=== PATIENT | female | born 1940 | race Caucasian/White ===

== ENCOUNTER 2023-05-22 16:20 | Outpatient (REF) | payer MEDICARE, SELFPAY ==
[2023-05-22 16:40] LABS: Anion Gap 3.6 mmol/L (3-11); BUN 15 mg/dL (7-18); CO2 30.4 mmol/L (21.0-32.0); CREATININE 0.7 mg/dL (0.55-1.02); Calcium 8.7 mg/dL (8.5-10.1); Chloride 100 mmol/L (98-107); Estimated GFR 86.83 (mL/min/1.73m2); Glucose 156 mg/dL (74-106); Magnesium 1.8 mg/dL (1.8-2.4); PHOSPHORUS 3.9 mg/dL (2.6-4.7); Potassium 3.9 mmol/L (3.5-5.1); Sodium 134 mmol/L (136-145)
== END 2023-05-22 16:21 | disposition home or self-care (01) ==
LOC: LBN 16:20
PROVIDERS: PCP Internal Medicine; Visit Provider Internal Medicine
DX: M81.0 Age-related osteoporosis without current pathological fracture (principal)
CPT/HCPCS: 80048; 83735; 84100

== ENCOUNTER 2023-06-18 15:19 | Outpatient (REF) | payer MEDICARE, SELFPAY ==
[2023-06-18 16:14] LABS: Anion Gap 4.8 mmol/L (3-11); BUN 19 mg/dL (7-18); CO2 31.2 mmol/L (21.0-32.0); CREATININE 0.9 mg/dL (0.55-1.02); Calcium 8.9 mg/dL (8.5-10.1); Chloride 100 mmol/L (98-107); Estimated GFR 64.23 (mL/min/1.73m2); Glucose 113 mg/dL (74-106); Magnesium 1.9 mg/dL (1.8-2.4); Potassium 4.2 mmol/L (3.5-5.1); Sodium 136 mmol/L (136-145)
== END 2023-06-18 15:20 | disposition home or self-care (01) ==
LOC: LBN 15:19
PROVIDERS: PCP Internal Medicine; Visit Provider Internal Medicine
DX: M81.0 Age-related osteoporosis without current pathological fracture (principal)
CPT/HCPCS: 80048; 83735; 84100

== ENCOUNTER 2023-06-22 04:12 | Outpatient (RCR) | payer MEDICARE, SELFPAY ==
[2023-06-22] MEDS: ZOLEDRONIC ACID/MANNITOL/WATER 5 MG/100 ML BTL 300 MG IVPB (10:15)
[2023-06-22] MEDS: Normal Saline Flush 10 ML SYR IVP (10:19)
== END 2023-07-10 23:59 | disposition home or self-care (01) ==
LOC: INF 04:12
PROVIDERS: PCP Internal Medicine; Visit Provider Nurse Practitioner Acute Care
DX: M81.0 Age-related osteoporosis without current pathological fracture (principal)
CPT/HCPCS: 96365; J3489

== ENCOUNTER 2023-07-26 12:09 | Outpatient (REF) | payer MEDICARE, SELFPAY ==
[2023-07-26 12:59] LABS: Anion Gap 5.8 mmol/L (3-11); BUN 16 mg/dL (7-18); CO2 29.2 mmol/L (21.0-32.0); CREATININE 0.8 mg/dL (0.55-1.02); Calcium 8.5 mg/dL (8.5-10.1); Chloride 102 mmol/L (98-107); Estimated GFR 73.98 (mL/min/1.73m2); Glucose 87 mg/dL (74-106); Magnesium 1.8 mg/dL (1.8-2.4); Potassium 4.4 mmol/L (3.5-5.1); Sodium 137 mmol/L (136-145); Vitamin B12 1000 pg/mL (193-986)
== END 2023-07-26 12:10 | disposition home or self-care (01) ==
LOC: NCHCN 12:09
PROVIDERS: PCP Internal Medicine; Visit Provider Nurse Practitioner Family
DX: Z51.81 Encounter for therapeutic drug level monitoring (principal)
CPT/HCPCS: 80048; 82607; 83735

== ENCOUNTER 2023-10-30 07:06 | Outpatient (REF) | payer MEDICARE, SELFPAY ==
[2023-10-30 09:41] LABS: C Diff PCR Negative (Negative)
[2023-10-31 22:41] LABS: Campylobacter PCR Negative (Negative); Salmonella PCR Negative (Negative); Shiga Toxin PCR Negative (Negative); Shigella/Enteroinvasive Ecoli Negative (Negative)
== END 2023-10-30 07:07 | disposition home or self-care (01) ==
LOC: NCHCN 07:06
PROVIDERS: PCP Internal Medicine; Visit Provider Nurse Practitioner Family
DX: R19.7 Diarrhea, unspecified (principal)
CPT/HCPCS: 87493; 87505; 87177

== ENCOUNTER 2023-10-31 14:55 | Outpatient (REF) | payer MEDICARE, SELFPAY ==
[2023-10-31 10:22] LABS: Abs Immature Grans 0.03 10^3/uL (0.0-0.06); Absolute Basophil Count 0.05 10^3/uL (0.0-0.2); Absolute Eosinophil Count 0.35 10^3/uL (0.0-0.7); Absolute Lymphocyte Count 0.97 10^3/uL (1.2-3.4); Absolute Monocyte Count 0.64 10^3/uL (0.1-0.8); Absolute Neutrophil Count 4.94 10^3/uL (1.2-6.7); Basophils % 0.7; HCT 38.8 % (36.0-46.0); HGB 13.1 g/dL (11.2-15.7); Immature Grans % 0.4; Lymphocytes % 13.9; MCH 31.3 pg (27.0-33.0); MCHC 33.8 % (32.0-36.0); MCV 93 fL (80-95); MPV 9.6 fL (8.0-11.0); Monocytes % 9.2; Neutrophils % 70.8; Platelet Count 223 10^3/uL (130-400); RBC 4.18 10^6/uL (3.93-5.22); RDW 12.4 % (11.7-14.6); RDW-SD 42.6 fL; WBC 6.98 10^3/uL (4.4-10.8)
[2023-10-31 10:51] LABS: ALT 21 U/L (14-59); AST 15 U/L (15-37); Albumin 3.4 g/dL (3.4-5.0); Alkaline Phosphatase 65 U/L (46-116); Anion Gap 10.2 mmol/L (3-11); BUN 14 mg/dL (7-18); Bilirubin, Total 0.5 mg/dL (0.2-1.0); CO2 27.8 mmol/L (21.0-32.0); CREATININE 0.8 mg/dL (0.55-1.02); Calcium 8.3 mg/dL (8.5-10.1); Chloride 102 mmol/L (98-107); Estimated GFR 73.52 (mL/min/1.73m2); Glucose 140 mg/dL (74-106); Lipase 28 U/L (16-77); Potassium 3.7 mmol/L (3.5-5.1); Sodium 140 mmol/L (136-145); Total Protein 6.4 g/dL (6.4-8.2)
== END 2023-10-31 14:56 | disposition home or self-care (01) ==
LOC: NCHCN 14:55
PROVIDERS: PCP Internal Medicine; Visit Provider Nurse Practitioner Family
DX: R19.7 Diarrhea, unspecified (principal)
CPT/HCPCS: 80053; 83690; 85025

== ENCOUNTER 2024-01-16 19:27 | Outpatient (REF) | payer MEDICARE, SELFPAY | END 2024-01-16 19:28 | disposition home or self-care (01) | LOC: LBN 19:27 | PROVIDERS: PCP Nurse Practitioner Family; Visit Provider Nurse Practitioner Adult Health | DX: R19.7 Diarrhea, unspecified (principal) | CPT/HCPCS: 87329 ==

== ENCOUNTER 2024-01-29 12:27 | Outpatient (REF) | payer MEDICARE, SELFPAY ==
[2024-01-29 13:43] LABS: ALT 24 U/L (14-59); AST 20 U/L (15-37); Alkaline Phosphatase 83 U/L (46-116); BUN 12 mg/dL (7-18); Bilirubin, Total 0.67 mg/dL (0.2-1.0); CREATININE 0.8 mg/dL (0.55-1.02); Chloride 100 mmol/L (98-107); Estimated GFR 73.52 (mL/min/1.73m2); Glucose 93 mg/dL (74-106); Potassium 4.2 mmol/L (3.5-5.1); Sodium 139 mmol/L (136-145); Total Protein 7.6 g/dL (6.4-8.2); Vitamin D 25 Total 44.7 ng/mL (30-100)
[2024-01-29 13:46] LABS: Anion Gap 8.8 mmol/L (3-11); CO2 30.2 mmol/L (21.0-32.0)
[2024-01-29 13:58] LABS: PHOSPHORUS 3.8 mg/dL (2.6-4.7)
[2024-01-30 18:09] LABS: Parathyroid Hormone,Intact 50 pg/mL (19-88)
[2024-01-31 08:51] LABS: Calcium (Random Urine) 5.2 mg/dL (See Note)
== END 2024-01-29 12:28 | disposition home or self-care (01) ==
LOC: LBN 12:27
PROVIDERS: PCP Nurse Practitioner Family; Visit Provider Internal Medicine Endocrinology, Diabetes & Metabolism
DX: M81.0 Age-related osteoporosis without current pathological fracture (principal)
CPT/HCPCS: 80053; 82306; 82340; 82565; 83970; 84100

== ENCOUNTER → 2024-02-02 00:11 | Outpatient (CLI) | payer MEDICARE, SELFPAY ==
--- NOTE | 2024-02-02 | DI.DEXA_ITS ---
Exam(s) XR DEXA BONE DENSITY W/WO HOMERO EXAM: XR DEXA BONE DENSITY W/WO HOMERO CLINICAL HISTORY: M81.0 Age related Osteoporosis w/o current pathological FX TECHNIQUE: Routine DEXA evaluation of the lumbar spine, hip, or forearm. COMPARISON: No exams were available for comparison FINDINGS: Performed on a Hologic unit. Lateral image: Not performed Lumbar Spine total T-score: -3.2. This is osteoporosis range Hip total T-score:-3.1. This is osteoporosis range Independent reading at the level of the femoral neck yields T-score of -3.9. This is osteoporosis r siomara Forearm total T-score: -2.0 IMPRESSION: Bone mineral density measures in the osteoporosis range. Fracture risk is high. Note: Any spine fracture indicates 5x risk for subsequent spine fracture and 2x risk for subsequent h ip fracture. World Health Organization criteria for BMD interpretation classify patients: Normal...... T- Score at or above -1.0 Osteopenic... T- Score between -1.0 and -2.5 Osteoporosis... T-Score at or below -2.5
== END ==
PROVIDERS: PCP Nurse Practitioner Family; Visit Provider Internal Medicine Endocrinology, Diabetes & Metabolism
DX: M81.0 Age-related osteoporosis without current pathological fracture (principal)
CPT/HCPCS: 77080

== ENCOUNTER → 2024-04-12 15:15 | Outpatient (BNVA) | payer MEDICARE, SELFPAY | PROVIDERS: PCP Nurse Practitioner Family; Referring Provider Nurse Practitioner Family; Visit Provider Physical Therapy Assistant | DX: R19.7 Diarrhea, unspecified (principal); Z85.038 Personal history of other malignant neoplasm of large intestine | CPT/HCPCS: 99203 ==

== ENCOUNTER 2024-06-20 14:55 | Outpatient (CLI) | payer MEDICARE, SELFPAY ==
--- NOTE | 2024-06-20 14:15 | DI.RAD_ITS ---
Exam(s) XR SHOULDER LT COMPLETE 2+V EXAM: XR SHOULDER LT COMPLETE 2+V CLINICAL HISTORY: LEFT SHOULDER PAIN. TECHNIQUE: 2D digital imaging was performed. Two views. COMPARISON: No exams were available for comparison FINDINGS: BONES: No acute fracture is present. No bony destructive lesion is seen. JOINTS: No dislocation present. Mild to moderate narrowing of the glenohumeral joint. Mild spurring at the glenoid. No significant spurring at the AC joint. SOFT TISSUE: Normal. IMPRESSION: [id number] degenerative changes of the glenohumeral joint. DATA REPOSITORY: RADIATION DOSE DELIVERED:
== END 2024-06-20 14:56 | disposition home or self-care (01) ==
LOC: DIORS 14:55
PROVIDERS: PCP Nurse Practitioner Family; Referring Provider Nurse Practitioner Family; Visit Provider Student in an Organized Health Care Education/Training Program
DX: M19.012 Primary osteoarthritis, left shoulder
CPT/HCPCS: 20610; 99203; J1010; 73030

== ENCOUNTER 2024-07-24 18:03 | Outpatient (REF) | payer MEDICARE, SELFPAY ==
[2024-07-24 17:33] LABS: ALT 16 U/L (14-59); AST 14 U/L (15-37); Alkaline Phosphatase 83 U/L (46-116); Anion Gap 9.1 mmol/L (3-11); BUN 21 mg/dL (7-18); Bilirubin, Total 0.46 mg/dL (0.2-1.0); CO2 27.9 mmol/L (21.0-32.0); Calcium 9.1 mg/dL (8.5-10.1); Calculated LDL 79 mg/dL (<100); Chloride 102 mmol/L (98-107); Cholesterol 186 mg/dL (<200); Estimated GFR 56.25 (mL/min/1.73m2); Glucose 136 mg/dL (74-106); HDL Cholesterol 74 mg/dL (40-60); Magnesium 1.7 mg/dL (1.8-2.4); Potassium 4.2 mmol/L (3.5-5.1); Sodium 139 mmol/L (136-145); Total Protein 7.3 g/dL (6.4-8.2); Triglyceride 169 mg/dL (<150); Vitamin B12 548 pg/mL (193-986); Vitamin D 25 Total 40.5 ng/mL (30-100)
== END 2024-07-24 18:04 | disposition home or self-care (01) ==
LOC: NCHCN 18:03
PROVIDERS: PCP Nurse Practitioner Family; Visit Provider Nurse Practitioner Family
DX: I25.10 Atherosclerotic heart disease of native coronary artery without angina pectoris (principal); M81.0 Age-related osteoporosis without current pathological fracture
CPT/HCPCS: 80053; 80061; 82306; 82607; 83735

== ENCOUNTER 2025-04-22 12:27 | Outpatient (REF) | payer MEDICARE, SELFPAY ==
[2025-04-22 14:56] LABS: Abs Immature Grans 0.01 10^3/uL (0.0-0.06); HCT 43.0 % (36.0-46.0); HGB 14.7 g/dL (11.2-15.7); Immature Grans % 0.2 %; MCH 32.2 pg (27.0-33.0); MCHC 34.2 % (32.0-36.0); MCV 94 fL (80-95); MPV 9.7 fL (8.0-11.0); Platelet Count 259 10^3/uL (130-400); RBC 4.57 10^6/uL (3.93-5.22); RDW 12.0 % (11.7-14.6); RDW-SD 41.8 fL; WBC 6.45 10^3/uL (4.4-10.8)
[2025-04-22 15:07] LABS: Iron 88 ug/dL (50-170); Total Iron Binding Capacity 270 ug/dL (250-450); Transferrin Sat 33 % (15-50)
[2025-04-22 17:31] LABS: ALT 26 U/L (14-59); AST 22 U/L (15-37); Albumin 4.1 g/dL (3.4-5.0); Alkaline Phosphatase 92 U/L (46-116); Anion Gap 10.2 mmol/L (3-11); BUN 20 mg/dL (7-18); Bilirubin, Total 0.5 mg/dL (0.2-1.0); CO2 30.8 mmol/L (21.0-32.0); Calcium 9.0 mg/dL (8.5-10.1); Chloride 99 mmol/L (98-107); Estimated GFR 73.06 (mL/min/1.73m2); Ferritin 97 ng/mL (8-252); Glucose 85 mg/dL (74-106); Magnesium 1.8 mg/dL (1.8-2.4); Potassium 4.6 mmol/L (3.5-5.1); Sodium 140 mmol/L (136-145); Total Protein 7.7 g/dL (6.4-8.2); Vitamin D 25 Total 41 ng/mL (30-100)
== END 2025-04-22 12:28 | disposition home or self-care (01) ==
LOC: NCHCN 12:27
PROVIDERS: PCP Nurse Practitioner Family; Visit Provider Nurse Practitioner Family
DX: M81.0 Age-related osteoporosis without current pathological fracture (principal); I25.10 Atherosclerotic heart disease of native coronary artery without angina pectoris; Z85.038 Personal history of other malignant neoplasm of large intestine
CPT/HCPCS: 80053; 82306; 82728; 83540; 83550; 83735; 85025

== ENCOUNTER 2025-05-21 00:57 | Outpatient (RCR) | payer MEDICARE, SELFPAY ==
[2025-05-21] MEDS: Normal Saline Flush 10 ML SYR IVP (13:37)
== END 2025-06-09 23:59 | disposition home or self-care (01) ==
LOC: INF 00:57
PROVIDERS: PCP Nurse Practitioner Family; Visit Provider Nurse Practitioner Acute Care
DX: M81.0 Age-related osteoporosis without current pathological fracture (principal)
CPT/HCPCS: 96365; J3489

== ENCOUNTER 2025-07-05 09:31 | Emergency (ER) | payer MEDICARE, SELFPAY ==
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
[2025-07-05 09:35] VITALS: BP 127/66; PULSE 90; RESP 20; TEMP 36.6; O2SAT 94
--- NOTE | 2025-07-05 10:00 | DI.RAD_ITS ---
Exam(s) XR LUMBAR SPINE AP, LAT EXAM: XR LUMBAR SPINE AP, LAT CLINICAL HISTORY: Lumbar spine pain. TECHNIQUE: 2D digital imaging was performed. COMPARISON: CR XR DEXA BONE DENSITY W/WO HMOERO from 02/02/2024 FINDINGS: 3 views There is vertebroplasty cement in the T12 and L1 vertebral bodies which exhibit varying degrees of collapse. There is also slight loss of height of superior endplate of L2, age indeterminate. Also slight loss of height of L3 superior endplate, age indeterminate. L4 and L5 vertebral bodies debate normal height. There is mild disc space narrowing. There is no listhesis. No scoliosis. Sacroiliac joints appear unremarkable. Abdominal aorta is heavily calcified. IMPRESSION: Vertebroplasty cement within T12 and L1 vertebral body fractures noted. There is also high-grade wedge fractures of T11 and T10. No previous plain films for comparison. DATA REPOSITORY: RADIATION DOSE DELIVERED:
--- NOTE | 2025-07-05 10:00 | DI.RAD_ITS ---
Exam(s) XR FEMUR RT EXAM: XR FEMUR RT CLINICAL HISTORY: Right hip pain. TECHNIQUE: 2D digital imaging was performed. COMPARISON: No exams were available for comparison FINDINGS: Two views No evidence of right hip nor right femur fracture. No significant right hip joint space narrowing. Bone density is age-appropriate. No osseous lesions. Vascular calcification is noted. IMPRESSION: No acute osseous findings in the right hip and femur DATA REPOSITORY: RADIATION DOSE DELIVERED:
--- NOTE | 2025-07-05 10:00 | DI.RAD_ITS ---
Exam(s) XR PELVIS AP EXAM: XR PELVIS AP CLINICAL HISTORY: Hip pain. TECHNIQUE: 2D digital imaging was performed. COMPARISON: No exams were available for comparison FINDINGS: AP view of pelvis No evidence of pelvic nor hip fracture. No hip joint space narrowing. Bone density normal. No osseous lesions. IMPRESSION: No significant osseous findings in the pelvis and hips. DATA REPOSITORY: RADIATION DOSE DELIVERED:
--- NOTE | 2025-07-05 10:01 | DI.RAD_ITS ---
Exam(s) XR FEMUR LT EXAM: XR FEMUR LT CLINICAL HISTORY: Left hip pain. TECHNIQUE: 2D digital imaging was performed. COMPARISON: CR XR FEMUR RT from 07/05/2025 FINDINGS: Two views No evidence of left femur nor left hip fracture. No hip joint space narrowing. Bone density is age-appropriate. No osseous lesions. Vascular calcification in the femoral arteries noted. IMPRESSION: No acute osseous findings in the left hip. DATA REPOSITORY: RADIATION DOSE DELIVERED:
[2025-07-05 10:50] VITALS: BP 142/78; PULSE 94; RESP 16; O2SAT 94
--- NOTE | 2025-07-05 11:00 | DI.CT_ITS ---
Exam(s) CT THORACIC LUMBAR SPINE WO EXAM: CT THORACIC LUMBAR SPINE WO CLINICAL HISTORY: Low back pain fall. TECHNIQUE: Imaging Protocol: Axial computed tomography images with coronal and sagittal reformatted images were created and reviewed. CONTRAST MATERIAL: Intravenous: None COMPARISON: CT CT PELVIC WO from 07/05/2025 FINDINGS: THORACIC SPINAL COLUMN: There is vertebroplasty cement in T12 and L1, both of which exhibit height loss and there is posterior position of the posterior cortex of T12 by 8 mm, significantly indenting the thecal sac at this level. Above this level there are wedge compression fractures of T10 and T11 and compression fracture of T8 and indentation of the superior endplate of T3. There is no facet joint malalignment. LUMBOSACRAL SPINAL COLUMN: There is osteopenia. Vertebroplasty cement is noted in T12 and L1 vertebral bodies, both which exhibit of height loss. There is also some mild height loss of L2 vertebral body and small indentation of the superior endplate of L3 vertebral body. There is no significant central spinal canal stenosis. Some facet arthropathy. No facet malalignment. IMPRESSION: There are compression fractures of T8, T10 and T11. There is vertebroplasty cement in T12 and L1 vertebral bodies which exhibit height loss. There is vertebroplasty cement evident in T12 and L1 vertebral bodies, both which also exhibit height loss. No sacral fracture identified. Report called by myself to ER physician 07/05/2025 at 21:15 p.m. RADIATION DOSE DELIVERED: 1,481.65mGy.cm Total DLP DATA REPOSITORY: All CT scans at this facility are submitted to the National Radiology Data Registry (NRDR) Dose Index Registry (DIR) with the [employer] ([employer]). RADIATION OPTIMIZATION: All CT scans at this facility use at least one of these dose optimization techniques: automated exposure control; mA and/or kV adjustment per patient size (includes targeted exams where dose is matched to clinical indication); or iterative reconstruction.
--- NOTE | 2025-07-05 11:04 | DI.CT_ITS ---
Exam(s) CT PELVIC WO EXAM: CT PELVIC WO CLINICAL HISTORY: Bilateral proximal hip pain. TECHNIQUE: Imaging Protocol: Axial computed tomography images with coronal and sagittal reformatted images were created and reviewed CONTRAST MATERIAL: Intravenous: none Oral: None COMPARISON: No exams were available for comparison FINDING: PELVIS: OSSEOUS: No pelvic nor hip fractures evident.No significant osseous lesions evident. ANTERIOR ABDOMINAL WALL/GI:No evidence of significant anterior abdominal wall nor inguinal hernia in the pelvis evident.There has been partial sigmoid resection. No abnormality seen at this level no evidence of bowel obstruction, free air, nor abscess in the pelvis. No evidence of appendicitis.No evidence of acute sigmoid diverticulitis.No free fluid in the pelvis. LYMPH NODES: There is no intrapelvic nor inguinal adenopathy. URINARY BLADDER: Urinary bladder is distended. REPRODUCTIVE: Uterus and adnexal regions appear age-appropriate.. IMPRESSION: 1. No fractures evident. 2. Evidence of prior partial sigmoid resection. RADIATION DOSE DELIVERED: 1,481.65mGy.cm Total DLP DATA REPOSITORY: All CT scans at this facility are submitted to the National Radiology Data Registry (NRDR) Dose Index Registry (DIR) with the [employer] (ACR). RADIATION OPTIMIZATION: All CT scans at this facility use at least one of these dose optimization techniques: automated exposure control; mA and/or kV adjustment per patient size (includes targeted exams where dose is matched to clinical indication); or iterative reconstruction.
[2025-07-05 11:45] VITALS: BP 147/67; PULSE 84; RESP 18; O2SAT 96
[2025-07-05 13:02] VITALS: BP 137/78; PULSE 81; O2SAT 94
--- NOTE | 2025-07-05 13:40 | NUR.NOTE ---
Nursing Note: Ambulatory order from physician to determine if PT necessary. Pt given a two-wheeled walker for the test. Pt states, I usually use a 4 wheel walker. I can't pick these up very well. Pt ambulated from bed into ED, turning around and returning to bed. Total walk ~50 feet. Pt had some difficulty lifting walker rear legs but was able to ambulate w/o difficulty. Caregiver states pt ambulating like she usually does.
[2025-07-05 14:03] VITALS: BP 157/84; PULSE 88; RESP 18; O2SAT 96
== END 2025-07-05 14:03 | disposition home or self-care (01) ==
PROVIDERS: Emergency Provider Emergency Medicine; PCP Nurse Practitioner Family
DX: M54.50 Low back pain, unspecified (principal); W19.XXXA Unspecified fall, initial encounter
CPT/HCPCS: 99283; 99284; 73552; 72100; 72128; 72131; 72170; 72192

== ENCOUNTER 2025-07-07 08:45 | Observation (INO) | payer MEDICARE, SELFPAY ==
[2025-07-07] VITALS (61 sets, daily range): BP systolic 129–165; BP diastolic 62–74; PULSE 87–110; RESP 16–18; TEMP 36.7–37.4; O2SAT 91–95
--- NOTE | 2025-07-07 08:47 | W.ED.GENAD ---
Discharge Plan Discharge Details Chief Complaint: Fall/Non TraumaCriteria Admit Date/Time: 07/07/25 12:58 Admit Provider: Bebeto Del Valle Attending Provider: Bebeto Del Valle Primary Care Provider: Paige Davalos ED Provider: Sg Philip Discharge Data Discharge Date/Time-TO BE ENTERED AT DEPARTURE: 07/07/25 12:45 HPI General Date/Time Provider Initiated Documentation: 07/07/25 08:46. HPI Narrative: MDM This is an overall well-appearing initially tachycardic but normotensive and normothermic 84-year-old female with worsening pain following fall several days ago with reassuring imaging for which patient received PT evaluation and was graciously accepted for hospitalization by Dr. Del Valle. She did complain of bilateral lower extremity pain which was new so I obtained plain films. No pain out of proportion to suggest necrotizing soft tissue infection. Patient would likely benefit from inpatient MRI given concern for pelvic insufficiency fracture. No chest trauma no shortness of breath so doubt pneumothorax I did not chest x-ray. No loss of bowel or bladder control to suggest cauda equina syndrome. No preceding chest pain to suggest ACS. No shortness of breath to suggest PE. Patient is not septic so did not order blood cultures normal lactate. Will treat pain with acetaminophen. 11 AM CBC lacks anemia thrombocytopenia and leukocytosis. Basic metabolic panel with no MARIAA. Mild hyperglycemia but no anion gap. CK not consistent with rhabdomyolysis. HPI The patient presents for evaluation of bilateral hip pain. She is accompanied by her daughter. She reports experiencing pain in both hips, which radiates down her legs, making it difficult for her to stand. She does not experience any mid-back pain. She has not had any recent falls or loss of bowel or bladder control. She also reports no numbness or tingling in her feet, fevers, cough, or difficulty breathing. She had an external catheter placed on Tuesday and notes a decrease in urine output since then. Exam General: Well-appearing in no acute distress speaking in complete sentences. Head: Normocephalic, atraumatic. Eye: Extraocular eye movements intact. No conjunctival injection. No scleral icterus. Ear, nose, mouth, throat: Grossly normal inspection. Normal voice, handling secretions normally. Neck: Trachea midline. No cervical spinal tenderness. Cardiovascular: Well-perfused distal extremities. Respiratory: Nonlabored respiration. Clear lungs bilaterally. Gastrointestinal: Nondistended abdomen. Soft nontender. Musculoskeletal: Bilateral proximal hips with tenderness. No midline thoracic nor lumbar spinal tenderness. Patient has left proximal tibial tenderness and right distal tibial tenderness. No obvious deformities nor ecchymoses. Intact DP and PT pulses bilaterally. Bilateral upper extremities nontender. Skin: Normal for age and race, grossly normal temperature and turgor. No acute rash. Neurologic: Alert and appropriate, no apparent acute deficits. GCS 15. Psychiatric: Mood and manner are appropriate. Grooming and personal hygiene are appropriate. Related Data Home Medications ?Medication ?Instructions ?Recorded ?Confirmed amlodipine 10 mg tablet 10 mg PO DAILY 05/31/23 07/07/25 calcium 500 mg (as 1 tab PO BID 05/31/23 07/07/25 carbonate)-vitamin D3 10 mcg (400 unit) tablet carvedilol 12.5 mg tablet 12.5 mg PO BID 05/31/23 07/07/25 clonidine HCl 0.1 mg tablet 0.1 mg PO BID 05/31/23 07/07/25 fluticasone furoate 100 1 inh inhalation DAILY 05/31/23 07/07/25 mcg-vilanterol 25 mcg/dose inhalation powder furosemide 20 mg tablet 20 mg PO DAILY 05/31/23 07/07/25 losartan 100 mg tablet 100 mg PO DAILY 05/31/23 07/07/25 multivitamin with iron 1 tab PO DAILY 05/31/23 07/07/25 omeprazole 40 mg capsule,delayed 40 mg PO DAILY 05/31/23 07/07/25 release simvastatin 40 mg tablet 40 mg PO QHS 05/31/23 07/07/25 trazodone 50 mg tablet 150 mg PO QHS PRN 05/31/23 07/07/25 docusate sodium 100 mg capsule 200 mg PO BID 06/01/23 07/07/25 polyethylene glycol 3350 17 17 g PO DAILY 07/13/23 07/07/25 gram/dose oral powder loperamide 2 mg tablet (Imodium 2 mg PO BID PRN 01/11/24 07/07/25 A-D) apixaban 2.5 mg tablet (Eliquis) 2.5 mg PO BID 06/06/24 07/07/25 melatonin 5 mg capsule 5 mg PO HS 07/05/25 07/07/25 methocarbamol 500 mg tablet 500 mg PO TID #7 tabs 07/05/25 07/07/25 Previous Rx's ?Medication ?Instructions ?Recorded methocarbamol 500 mg tablet 500 mg PO TID #7 tabs 07/05/25 Allergies Allergy/AdvReac Type Severity Reaction Status Date / Time No Known Allergies Allergy Verified 07/07/25 09:07 General YANET: 3 PFSH All Active Problems (Updated 07/07/25 @ 14:41 by Lori Damian NP) Discharge planning issues (Acute) Acute low back pain (Acute) Hx of falling (Acute) Arthritis of left glenohumeral joint (Acute) Impaired cognition (Chronic) Asthma (Chronic) Atrial fibrillation, chronic (Acute) Microscopic colitis (Acute) 06/06/24 per PCPn problem list [facility] Lives in assisted living facility (Acute) Back pain (Acute) Plantar fasciitis (Acute) Physician orders for life-sustaining treatment (POLST) form indicates patient wish for fj-rvd-fvfzwfmjqnr status (Acute) ACP (advance care planning) (Acute) Medical History White blood cell disorder Paroxysmal atrial fibrillation Non-toxic multinodular goiter Nocturia Migraine with aura Microscopic hematuria Insomnia Hypertensive disease Hyperlipidemia Hx of malignant neoplasm of colon Cough variant asthma Constipation Compression fracture of lumbar vertebra Chronic pain Cerebrovascular accident Cataract Osteoporosis Surgical History History of bowel resection Sigmoid resection for stage 3 colon cancer 07/10/1997 Hx of colonoscopy Social History Smoking/Tobacco Use Status: Former Tobacco Use Smoking risk assessment performed?: Yes Alcohol Intake: never Drug use: Never Substance use type: does not use Housing: assisted living facility Additional Social history: [facility]
[2025-07-07 09:47] LABS: Abs Immature Grans 0.05 10^3/uL (0.0-0.06); HCT 40.2 % (36.0-46.0); HGB 14.0 g/dL (11.2-15.7); Immature Grans % 0.5 %; MCH 31.7 pg (27.0-33.0); MCHC 34.8 % (32.0-36.0); MCV 91 fL (80-95); MPV 9.2 fL (8.0-11.0); Platelet Count 183 10^3/uL (130-400); RBC 4.41 10^6/uL (3.93-5.22); RDW 11.9 % (11.7-14.6); RDW-SD 39.8 fL; WBC 10.07 10^3/uL (4.4-10.8)
--- NOTE | 2025-07-07 09:53 | IN_ITS ---
Date of service: 07/07/25 Time of Service: 10:00 PT Emergency Department Note Patient Location: Emergency Room Referring Provider: Sg Philip PT Diagnosis: Fall/difficulty walking Diagnosis: Fall/difficulty walking Date of Service: July 07, 2025 10:00 Physical Therapy Evaluation Date: 07/07/25 Referring Doctor: Sg Philip PT Orders: PT CONSULT: Difficulty ambulating Precautions: Fall precautions Patient Profile/Admitting Diagnosis: Pt reports that she fell on 07/05/25. She was seen in the ED, had CT scans (thoracic, lumbar and pelvis) and x-rays (lumbar spine, pelvis and femurs) which were negative. This morning, her pain was much worse. She reports that she has been using a front wheeled rolling walker for about three years. She lives at the [facility]. PMHX: See below Social History/Home Situation: Lives at the [facility] Current Functional Limitations: Unable to ambulate due to pain Equipment Owned/DME: Front wheeled rolling walker Subjective: Pt reports that she is in a lot of pain this morning. Pain is worse with movement especially trying to sit up or stand up. With attempt to sit up, pt reported that her pain increased to a 10/10. Objective: General Observation: Mental Status: Alterd and oriented Pain: At rest 7-8/10 in sacral region, 5-6/10 in left > right LE, increased to 10/10 with active movement Vital Signs: Monitored by nursing ROM: Right Lower Extremity: PROM WFL Left Lower Extremity: PROM WFL Strength: Right Lower Extremity: grossly 3-3+/5 Left Lower Extremity: grossly 3-3+/5 Bed Mobility/Transfers: Max assist to attempt supine to sit transfer, pain increased to a 10/10 Gait: Unable at this time secondary to pain Balance: Unable to assess at this time secondary to pain Special Tests: Mobility Limitations Standardized Measure [facility] AM-PAC 6 clicks Basic Mobility Inpatient Short Form: Raw Score: 7 Standardized Score: 26.42 CMS Score: 92.36 Informed Consent/Education: Patient instructed in purpose of PT consult and plan of care. Assessment: Patient is a 84 year old female referred to physical therapy services difficulty ambulating following fall on 07/05/25. Patient presents with the following impairment level findings: decreased strength, impaired mobility and difficulty walking. Impairments are contributing to the following functional limitations: AMPAC score. Patient is assessed as a [] Low 90160 [x] Moderate 80011 [] High 12357 complexity based on the following: History: See above Examination: See above Presentation: Evolving Decision Making: Moderate Goals: Goals X1 week 1. Supine-Sit CG of1 to supervision 2. Sit-Supine CG of1 to supervision 3. Sit-Stand CG of1 to supervision 4. Stand-Sit CG of1 to supervision 5. Bed-Chair CG of1 to supervision 6. Chair-Bed CG of1 to supervision 7. Gait CG of1 to supervision with FFW 8. Stairs n/a 9. Independent with home exercise program 10. Balance: able to maintain static and dynamic standing with supervision to CG of and use of FWW Plan of Care/Treatment Plan: 1-2x/day, 7 days/week x 1 week. Plan of care has been reviewed with the REST ROOM ATTENDANT providing the service under Physical Therapy direction. Initiate Physical Therapy intervention for strengthening, bed mobility, transfers, gait, stairs, balance training, use of assistive device. DISCHARGE RECOMMENDATIONS: Will need additional assessment by PT once pt can better tolerate getting OOB and ambulating but at this point feel that she may require: SNF for continued rehabilitation vs home with HHPT TREATMENT CODE/TIME: 02244 10:00-10:25 [facility] All Active Problems (Updated 07/05/25 @ 13:52 by Sg Philip MD) Acute low back pain (Acute) Hx of falling (Acute) Arthritis of left glenohumeral joint (Acute) Impaired cognition (Acute) Asthma (Chronic) Atrial fibrillation, chronic (Acute) Microscopic colitis (Acute) 06/06/24 per PCPn problem list [facility] Lives in assisted living facility (Acute) Back pain (Acute) Plantar fasciitis (Acute) Physician orders for life-sustaining treatment (POLST) form indicates patient wish for vy-hje-diqvqvikmsm status (Acute) ACP (advance care planning) (Acute) Medical History White blood cell disorder Paroxysmal atrial fibrillation Non-toxic multinodular goiter Nocturia Migraine with aura Microscopic hematuria Insomnia Hypertensive disease Hyperlipidemia Hx of malignant neoplasm of colon Cough variant asthma Constipation Compression fracture of lumbar vertebra Chronic pain Cerebrovascular accident Cataract Osteoporosis Surgical History History of bowel resection Sigmoid resection for stage 3 colon cancer 07/10/1997 Hx of colonoscopy
[2025-07-07] MEDS: Losartan 50 MG TAB 100 MG PO (10:02)
[2025-07-07] MEDS: Apixaban 5 MG TAB 2.5 MG PO (10:02)
[2025-07-07] MEDS: amLODIPine 5 MG TAB 10 MG PO (10:03)
[2025-07-07] MEDS: Acetaminophen 500 MG TAB 1000 MG PO (10:03)
[2025-07-07] MEDS: cloNIDine 0.1 MG TAB PO ×2 (10:03→20:19)
[2025-07-07] MEDS: Furosemide 20 MG TAB PO (10:03)
[2025-07-07 10:15] LABS: Anion Gap 8.6 mmol/L (3-11); BUN 17 mg/dL (9-23); CO2 27.4 mmol/L (20.0-31.0); Calcium 8.8 mg/dL (8.3-10.6); Chloride 104 mmol/L (98-107); Creatine Kinase 45 U/L (34-145); Glucose 124 mg/dL (74-106); Potassium 3.6 mmol/L (3.5-5.1); Sodium 140 mmol/L (136-145)
--- NOTE | 2025-07-07 10:15 | DI.RAD_ITS ---
Exam(s) XR TIB/FIB RT EXAM: XR TIB/FIB RT CLINICAL HISTORY: Right tibial pain. TECHNIQUE: 2D digital imaging was performed. COMPARISON: CR,XR XR TIB/FIB LT from 07/07/2025 FINDINGS: Two views No evidence of fracture. Bone density is age-appropriate. No significant osseous lesions. No radiopaque foreign bodies. IMPRESSION: No fractures evident in the tibia and fibula. DATA REPOSITORY: RADIATION DOSE DELIVERED:
--- NOTE | 2025-07-07 10:15 | DI.RAD_ITS ---
Exam(s) XR TIB/FIB LT EXAM: XR TIB/FIB LT CLINICAL HISTORY: Left tibial pain. TECHNIQUE: 2D digital imaging was performed. COMPARISON: CR XR FEMUR LT from 07/05/2025 FINDINGS: Two views No evidence of fracture or dislocation. Bone density normal. No osseous lesions evident. IMPRESSION: No acute osseous findings in the left tibia and fibula. DATA REPOSITORY: RADIATION DOSE DELIVERED:
--- NOTE | 2025-07-07 11:18 | DI.VRAD_ITS ---
PROCEDURE INFORMATION: Exam: XR Left Tibia and Fibula Exam date and time: 07/07/2025 10:39 AM Age: 84 years old Clinical indication: Other: Left tibial pain TECHNIQUE: Imaging protocol: Radiologic exam of the left tibia and fibula. Views: 2 views. COMPARISON: No relevant prior studies available. FINDINGS: Bones/joints: There is no evidence of acute fracture.There is no evidence of malalignment or dislocation. Soft tissues: Normal. IMPRESSION: There is no evidence of acute fracture.There is no evidence of malalignment or dislocation. Dictated and Authenticated by: Dominique Dasilva MD. Orderin Tamera Bettencourt MD
--- NOTE | 2025-07-07 11:19 | DI.VRAD_ITS ---
PROCEDURE INFORMATION: Exam: XR Right Tibia and Fibula Exam date and time: 07/07/2025 10:44 AM Age: 84 years old Clinical indication: Other: Right tibial pain TECHNIQUE: Imaging protocol: Radiologic exam of the right tibia and fibula. Views: 2 views. COMPARISON: No relevant prior studies available. FINDINGS: Bones/joints: There is no evidence of acute fracture.There is no evidence of malalignment or dislocation. . Degenerative changes in the knee and the ankle Soft tissues: Normal. IMPRESSION: There is no evidence of acute fracture.There is no evidence of malalignment or dislocation. Dictated and Authenticated by: Dominique Dasilva MD. Orderin Tamera Bettencourt MD
--- NOTE | 2025-07-07 12:36 | W.PC.ACHO ---
Registration Status: REG ER Primary Language: Preferred Language: ED Information & Data Chief Complaint Fall/Non TraumaCriteria 07/07/25 09:03 Chief Complaint Fall/Non TraumaCriteria 07/07/25 08:56 Triage Note Patient fell 2 days ago when 07/07/25 08:56 visiting her daughter at her home, witnessed fall without LOC. pt reports worsening pain in bilateral hips and lower back/sacrum. difficulty urinating this morning Medical / Surgical History (Updated 07/05/25 @ 13:52 by Sg Philip MD) White blood cell disorder Paroxysmal atrial fibrillation Non-toxic multinodular goiter Nocturia Migraine with aura Microscopic hematuria Insomnia Hypertensive disease Hyperlipidemia Hx of malignant neoplasm of colon Cough variant asthma Constipation Compression fracture of lumbar vertebra Chronic pain Cerebrovascular accident Cataract Osteoporosis (Updated 05/31/23 @ 10:07 by Tami Mccullough RN) History of bowel resection Hx of colonoscopy Most Recent Vital Signs Temperature 37.4 C 07/07/25 08:56 Temperature Source Temporal Artery Scan 07/07/25 08:56 Pulse 92 H 07/07/25 10:00 Respiratory Rate 16 07/07/25 08:56 Blood Pressure 165/74 H 07/07/25 08:56 Blood Pressure Position Supine 07/07/25 08:56 Pulse Oximetry 94 07/07/25 10:00 Oxygen Delivery Method Room Air 07/07/25 08:56 Oxygen Flow Rate 0 07/07/25 08:56 Pain Level 8 07/07/25 09:03 Allergies No Known Allergies Allergy (Verified 07/07/25 09:07) Precautions Isolation Fall precaution 07/07/25 09:03 IV IV Catheter Type [Forearm] Saline Lock IV Catheter Gauge [Forearm] 20 Diet Orders Category Date Time Status Regular/Normal [DIET] Nutrition 07/07/25 Lunch Active Diagnostics 07/07/25 Range/Units 09:35 WBC 10.07 (4.4-10.8) 10^3/uL RBC 4.41 (3.93-5.22) 10^6/uL Hgb 14.0 (11.2-15.7) g/dL Hct 40.2 (36.0-46.0) % MCV 91 (80-95) fL MCH 31.7 (27.0-33.0) pg MCHC 34.8 (32.0-36.0) % RDW 11.9 (11.7-14.6) % Plt Count 183 (130-400) 10^3/uL MPV 9.2 (8.0-11.0) fL Immature Gran % 0.5 % Neutrophils % 78.4 % Lymphocytes % 7.7 % Monocytes % 9.1 % Eosinophils % 3.7 % Basophils % 0.6 % Nucleated RBC % 0.0 (0.0-0.3) % Absolute Neutrophils 7.89 H (1.2-6.7) 10^3/uL Absolute Lymphocytes 0.78 L (1.2-3.4) 10^3/uL Absolute Monocytes 0.92 H (0.1-0.8) 10^3/uL Absolute Eosinophils 0.37 (0.0-0.7) 10^3/uL Absolute Basophils 0.06 (0.0-0.2) 10^3/uL Sodium 140 (136-145) mmol/L Potassium 3.6 (3.5-5.1) mmol/L Chloride 104 (98-107) mmol/L Carbon Dioxide 27.4 (20.0-31.0) mmol/L Anion Gap 8.6 (3-11) mmol/L BUN 17 (9-23) mg/dL Creatinine 0.67 (0.55-1.02) mg/dL Est GFR (CKD-EPI 2020) 83.90 (mL/min/1.73m2) Glucose 124 H (74-106) mg/dL Calcium 8.8 (8.3-10.6) mg/dL Creatine Kinase 45 (34-145) U/L Intake and Output - 24 Hour Total 07/07/25 08:45 thru 07/07/25 09:52 Intake Total 10 Balance 10 Weight 87.3 kg Intake: IV 10 Falls Risk Assessment History of Falls Admit Due to Fall 07/07/25 09:12 Contributing Factors Impairments 07/07/25 09:12 Ambulatory Aids Independent 07/07/25 09:12 Tubes/Lines None 07/07/25 09:12 Gait Evaluation W/no contributing factors 07/07/25 09:12 Cognition No cognitive impairment 07/07/25 09:12 Fall Total Score 38 07/07/25 09:12 Level of Risk High Risk 07/07/25 09:12 Attestation Statement: By documenting the first initial, last name, and credentials of the reporting nurse below, both parties acknowledge that all relevant information regarding the patient handoff has been communicated, and that all questions have been addressed to ensure continuity and safety of care. Additional Patient Information/Comments: All questions answered, VSS, Pt going to room 226. Report Received From: Report received from Jennifer Nixon RN @[phone].
[2025-07-07] MEDS: Carvedilol 12.5 MG TAB PO ×2 (13:28→20:19)
[2025-07-07] MEDS: Methocarbamol 500 MG TAB PO ×2 (13:28→20:19)
--- NOTE | 2025-07-07 14:04 | W.PM.HP.N ---
Date of service: 07/07/25 Time of Service: 13:45 Assessment and Plan Assessment and plan (1) Acute low back pain: Status: Acute Assessment and plan: Bilateral hip pain ? Likely musculoskeletal/pelvic insufficiency fracture; pain control with acetaminophen; Consult ortho 07/08. consider inpatient pelvic MRI. (2) Hx of falling: Status: Acute Assessment and plan: Monitor for complications, no acute spinal or neurologic deficits. (3) Atrial fibrillation, chronic: Status: Acute Assessment and plan: Stable, anticoagulated Medication: Apixaban 2.5 mg PO BID Plan: Continue anticoagulation; monitor for bleeding or thromboembolic events. (4) Impaired cognition: Status: Chronic Assessment and plan: Customary safety interventions Palliative consult Discharge Planning Discharge Planning: Home w v SNF History of Present Illness Narrative: Patient presents with bilateral hip pain following a fall several days ago. Pain radiates down the legs, limiting standing. No mid-back pain, loss of bowel/bladder control, numbness/tingling, fevers, cough, or shortness of breath. Reports decreased urine output after external catheter placement on Tuesday. No prior trauma except the fall several days ago, or recent ACS symptoms. Patient received PT evaluation. Bilateral lower extremity pain is new; plain films obtained?no pain out of proportion; no concern for necrotizing soft tissue infection. MRI considered for possible pelvic insufficiency fracture. Patient is not septic; lactate normal. Pain management in ED acetaminophen - effective . Labs/Diagnostics CBC: No anemia, thrombocytopenia, or leukocytosis BMP: No MARIAA, mild hyperglycemia, no anion gap CK: Normal, not consistent with rhabdomyolysis Imaging: Plain films obtained; MRI for pelvis pending consideration Placed on observation status on the medical floor for further testing and treatment. Review of Systems Narrative: General: No fevers, chills, or malaise Cardiovascular: No chest pain, palpitations Respiratory: No shortness of breath, cough GI/: Decreased urine output, no bowel changes Musculoskeletal: Bilateral hip pain, radiating down legs Neurologic: No numbness, tingling, or deficits Skin: No rashes, lesions Psychiatric: Mood and behavior appropriat [facility] All Active Problems (Updated 07/07/25 @ 14:41 by Lori Damian NP) Discharge planning issues (Acute) Acute low back pain (Acute) Hx of falling (Acute) Arthritis of left glenohumeral joint (Acute) Impaired cognition (Chronic) Asthma (Chronic) Atrial fibrillation, chronic (Acute) Microscopic colitis (Acute) 06/06/24 per PCPn problem list [facility] Lives in assisted living facility (Acute) Back pain (Acute) Plantar fasciitis (Acute) Physician orders for life-sustaining treatment (POLST) form indicates patient wish for hw-mle-bqxgqqzsfao status (Acute) ACP (advance care planning) (Acute) Medical History White blood cell disorder Paroxysmal atrial fibrillation Non-toxic multinodular goiter Nocturia Migraine with aura Microscopic hematuria Insomnia Hypertensive disease Hyperlipidemia Hx of malignant neoplasm of colon Cough variant asthma Constipation Compression fracture of lumbar vertebra Chronic pain Cerebrovascular accident Cataract Osteoporosis Surgical History History of bowel resection Sigmoid resection for stage 3 colon cancer 07/10/1997 Hx of colonoscopy Social History Smoking/Tobacco Use Status: Former Tobacco Use Smoking risk assessment performed?: Yes Alcohol Intake: never Drug use: Never Substance use type: does not use Housing: assisted living facility Additional Social history: [facility] Meds Allergies and Home Medications Allergies Allergy/AdvReac Type Severity Reaction Status Date / Time No Known Allergies Allergy Verified 07/07/25 09:07 Home Medications ?Medication ?Instructions ?Recorded ?Confirmed ?Type amlodipine 10 mg tablet 10 mg PO DAILY 05/31/23 07/07/25 History calcium 500 mg (as 1 tab PO BID 05/31/23 07/07/25 History carbonate)-vitamin D3 10 mcg (400 unit) tablet carvedilol 12.5 mg tablet 12.5 mg PO BID 05/31/23 07/07/25 History clonidine HCl 0.1 mg tablet 0.1 mg PO BID 05/31/23 07/07/25 History fluticasone furoate 100 1 inh inhalation DAILY 05/31/23 07/07/25 History mcg-vilanterol 25 mcg/dose inhalation powder furosemide 20 mg tablet 20 mg PO DAILY 05/31/23 07/07/25 History losartan 100 mg tablet 100 mg PO DAILY 05/31/23 07/07/25 History multivitamin with iron 1 tab PO DAILY 05/31/23 07/07/25 History omeprazole 40 mg capsule,delayed 40 mg PO DAILY 05/31/23 07/07/25 History release simvastatin 40 mg tablet 40 mg PO QHS 05/31/23 07/07/25 History trazodone 50 mg tablet 150 mg PO QHS PRN 05/31/23 07/07/25 History docusate sodium 100 mg capsule 200 mg PO BID 06/01/23 07/07/25 History polyethylene glycol 3350 17 17 g PO DAILY 07/13/23 07/07/25 History gram/dose oral powder loperamide 2 mg tablet (Imodium 2 mg PO BID PRN 01/11/24 07/07/25 History A-D) apixaban 2.5 mg tablet (Eliquis) 2.5 mg PO BID 06/06/24 07/07/25 History melatonin 5 mg capsule 5 mg PO HS 07/05/25 07/07/25 History methocarbamol 500 mg tablet 500 mg PO TID #7 tabs 07/05/25 07/07/25 Rx Exam Narrative Exam Narrative: General: Well-appearing, speaking full sentences, initially tachycardic, normotensive, normothermic Head: Normocephalic, atraumatic Eyes: EOMI, no conjunctival injection or icterus ENT: Normal inspection, normal voice Neck: Trachea midline, no cervical tenderness Cardiovascular: Well-perfused extremities Respiratory: Non-labored, lungs clear Abdomen: Soft, non-tender, non-distended Musculoskeletal: Tenderness at bilateral proximal hips, left proximal tibia, right distal tibia; upper extremities nontender; no deformity; pulses intact Skin: Normal for age, no acute rash Neuro: Alert, GCS 15, no acute deficits Psychiatric: Appropriate mood, grooming, hygiene Results Labs 07/07/25 09:35 07/07/25 09:35 Labs: Laboratory Results - last 24 hr 07/07/25 09:35 WBC 10.07 RBC 4.41 Hgb 14.0 Hct 40.2 MCV 91 MCH 31.7 MCHC 34.8 RDW 11.9 Plt Count 183 MPV 9.2 Immature Gran % 0.5 Neutrophils % 78.4 Lymphocytes % 7.7 Monocytes % 9.1 Eosinophils % 3.7 Basophils % 0.6 Nucleated RBC % 0.0 Absolute Neutrophils 7.89 H Absolute Lymphocytes 0.78 L Absolute Monocytes 0.92 H Absolute Eosinophils 0.37 Absolute Basophils 0.06 Sodium 140 Potassium 3.6 Chloride 104 Carbon Dioxide 27.4 Anion Gap 8.6 BUN 17 Creatinine 0.67 Est GFR (CKD-EPI 2020) 83.90 Glucose 124 H Calcium 8.8 Creatine Kinase 45 Last Vital Signs Temp 36.7 C 07/07/25 12:50 Pulse 88 07/07/25 12:50 Resp 18 07/07/25 12:50 BP 151/74 H 07/07/25 12:50 Pulse Ox 95 07/07/25 12:50 VTE Prohylaxis Risk Level: Low Risk Contraindications: None Prophylaxis: Patient anticoagulated (apixaban) Time Spent Time spent with Patient: 40-54 minutes Time was spent: preparing to see the patient(eg.review tests), obtaining and/or reviewing separately otained hiistory, ordering medications,tests, procedures, referring, communicating with other health multi care technician, indepentently interpreting results, counseling the patient and care coordination
[2025-07-07] MEDS: Acetaminophen 325 MG TAB 650 MG PO ×2 (16:40→20:18)
[2025-07-07] MEDS: Docusate Sodium 100 MG CAP 200 MG PO (20:19)
[2025-07-07] MEDS: Melatonin 3 MG TAB 6 MG PO (20:19)
[2025-07-07] MEDS: Apixaban 2.5 MG TAB PO (20:19)
[2025-07-07] MEDS: Calcium 600mg/Vit D 200U TAB 1 TAB PO (20:19)
[2025-07-07] MEDS: Simvastatin 40 MG TAB PO (20:19)
[2025-07-08] MEDS: Polyethylene Glycol 3350 17 GM PACKET PO ×2 (05:40→09:49)
[2025-07-08 07:45] VITALS: BP 141/67; PULSE 94; RESP 16; TEMP 36.7; O2SAT 94
[2025-07-08] MEDS: Budesonide/Formoterol 80/4.5 6.9 GM 60 PUFF INH IH ×2 (08:18→20:21)
[2025-07-08] MEDS: Carvedilol 12.5 MG TAB PO ×2 (09:44→19:58)
[2025-07-08] MEDS: Omeprazole 20 MG CAPCR 40 MG PO (09:44)
[2025-07-08] MEDS: Calcium 600mg/Vit D 200U TAB 1 TAB PO ×2 (09:44→19:59)
[2025-07-08] MEDS: amLODIPine 10 MG TAB PO (09:44)
[2025-07-08] MEDS: Methocarbamol 500 MG TAB PO ×3 (09:45→19:58)
[2025-07-08] MEDS: cloNIDine 0.1 MG TAB PO ×2 (09:45→19:58)
[2025-07-08] MEDS: Furosemide 20 MG TAB PO (09:45)
[2025-07-08] MEDS: Losartan 50 MG TAB 100 MG PO (09:45)
[2025-07-08] MEDS: Docusate Sodium 100 MG CAP 200 MG PO (09:45)
[2025-07-08] MEDS: Multivitamin TAB 1 TAB PO (09:45)
[2025-07-08] MEDS: Apixaban 2.5 MG TAB PO ×2 (09:46→19:59)
--- NOTE | 2025-07-08 10:26 | PT.INTREAT ---
PT Notes Visit Reasons: bilateral hip pain, ambulatory dysfunction Physical Therapy Inpatient Treatment Note Date: 07/08/25 Precautions: Fall precautions. Standard. Activity as tolerated. Subjective: Complained of pain and soreness in her B thighs and legs. Objective: General Observation: Mental Status: Alterd and oriented Pain: At rest 5/10 in sacral region, 5-6/10 in left > right LE, increased to 10/10 with active movement Vital Signs: Monitored by nursing Bed Mobility/Transfers: Minimal cueing provided for use of B hands as needed for support, movement sequence, AD management, and posture to reduce fall risk and minimize pain report Supine to sit moderate assist Sit to stand moderate assist with FWW Stand to sit minimal assist with FWW Bed to chair minimal assist with FWW Chair to bed minimal assist with FWW Gait: 50 feet with FWW with contact guard assist and FWW. Decreased lillian. Gait antalgic. Balance: Static sitting Fair Dynamic sitting Fair Static standing Fair Dynamic standing Poor Assessment: Patient required use of a front-wheeled walker for today's ambulation task and PT's contact guard assist. Patient was able to tolerate weight bearing through B LE with today's mobility performance with pain medication given by Nurse Sanchez at start of session. Pain limited extent and quality of performance and needed contact guard assist for safety. Session for this morning focused on assistance transfer to and from commode for voiding urine and bowel movement as well as ensuring safety of ambulation task. Plan of Care/Treatment Plan: 1-2x/day, 7 days/week x 1 week. Plan of care has been reviewed with the SALES SERVICE COORDINATOR providing the service under Physical Therapy direction. Initiate Physical Therapy intervention for strengthening, bed mobility, transfers, gait, stairs, balance training, use of assistive device. DISCHARGE RECOMMENDATIONS: Short-term SNF vs HH PT at [facility] based on ability to achieve goals TREATMENT CODE/TIME: 12410 x 48 minutes for 3 units (10:26-11:13).
[2025-07-08] MEDS: Acetaminophen 325 MG TAB 650 MG PO ×2 (10:37→19:03)
[2025-07-08] MEDS: traMADol 50 MG TAB PO ×2 (10:37→19:03)
--- NOTE | 2025-07-08 13:49 | PHA.REVIEW2 ---
Pharmacy Admission Review Admission Clinical Review Admission Pharmacy Review: Acute low back pain (Acute) Hx of falling (Acute) Atrial fibrillation, chronic (Acute) No Known Allergies Allergy (Verified 07/07/25 09:07) Resuscitation Status DNR/DNI Height 4 ft 10 in Weight 87.3 kg Pharmacy Admission Review Renal Dosing Renal Dosing: BUN 17 mg/dL (9-23) 07/07/25 09:35 Creatinine 0.67 mg/dL (0.55-1.02) 07/07/25 09:35 Medications needing adjustments: Reviewed (CrCl 37.96) List of meds needing interventions: Current medications are okay Anticoagulation Anticoagulation: Hgb 14.0 g/dL (11.2-15.7) 07/07/25 09:35 Hct 40.2 % (36.0-46.0) 07/07/25 09:35 Plt Count 183 10^3/uL (130-400) 07/07/25 09:35 Creatinine 0.67 mg/dL (0.55-1.02) 07/07/25 09:35 DVT Prophylaxis: Reviewed Medications: Apixaban (2.5mg BID) Opiate Usage Evaluate Pain Scale/Pains Meds: Reviewed (morphine 2mg IVP q4h PRN - no doses given) Scheduled Bowel Reg ordered if on Opiates?: Yes (Miralax and docusate) Relevant Labs Relevant Labs: Sodium 140 mmol/L (136-145) 07/07/25 09:35 Potassium 3.6 mmol/L (3.5-5.1) 07/07/25 09:35 Chloride 104 mmol/L (98-107) 07/07/25 09:35 Electrolytes, C-Reactive P, ESR: Reviewed (No new labs for today) Cardiac Review BP, HR, EF%: Reviewed (BP 141/67, HR 94) List meds needing interventions: Has orders for amlodipine 10mg daily, carvedilol 12.5mg BID, furosemide 20mg daily and losartan 100mg daily QTc Review QTc: Reviewed (No EKG on file) IV to PO Switch IV Medications: Reviewed (morphine) Home Meds Home Med List reviewed: Reviewed Relevent Home Meds Not ordered & why?: Breo Ellipta (changed to Symbicort per pharmacy protocol) and loperamide (PRN) Current Meds Current Medication Order Review: Intervened Comments: Changed Miralax order from bottle to packets
--- NOTE | 2025-07-08 15:32 | PT.INTREAT ---
PT Notes Visit Reasons: Bilateral Hip Pain; Ambulatory Dysfunction Date: 07/08/2025 PRECAUTIONS: Fall precautions. Standard. Activity as tolerated. SUBJECTIVE: Pt in recliner when approached for therapy this afternoon, agreed to participating with therapy session. OBJECTIVE: ? PAIN: At rest 3/10 in sacral region, 3/10 in left > right LE, increased to 5/10 with active movement VITALS: Monitored by nursing Therapeutic Activities 42901: Direct one-on-one instruction in dynamic activities to improve functional performance. ?? BED MOBILITY/TRANSFERS? Rolling L/R: supervision Supine-sit: ?supervision? Sit-supine: ? supervision? Sit-stand: ?min A? Stand-sit: ??SBA ? Bed-Chair:? ?CGA ? Chair-bed: CGA Provided skilled cues and instruction on performance and technique throughout. Gait Training 30168: Direct one-on-one instruction and skilled instruction in: Employing an assistive device Modified weight-bearing status Movement sequencing Turning and movement with proper form Provided verbal cues for equipment management and technique Provided instruction in gait pattern Patient education regarding pacing and breathing techniques to maximize activity tolerance? GAIT? Assistive Device: ?? FWW? Weight bearing: WBAT Assist: ? CGA? Distance:?? 100'? Deviation: ? antalgic gait, stoop forward posture? ASSESSMENT:?Pt had to go to the commode due to diarrhea, multiple transfer trantraining going from EOB to recliner, institutional nutrition consultant to commode and vice versa with pt tolerating activity well. pt able to stand static and single leg stand during brief donning while standing up, Nurse Fabian informed of pt LBM. PLAN: Continue with balance training, global strengthening and general conditioning for improved safety, mobility and activity tolerance until pt is ready for DC. TREATMENT CODE/TIME: 64751x1 30mins ( 1:45-2:15pm)
--- NOTE | 2025-07-08 16:35 | W.PM.PROGNOT ---
Date of Service Date of service: 07/08/25 Time of Service: 16:35 Assessment and Plan Assessment and plan (1) Acute low back pain: Status: Acute Assessment and plan: Bilateral hip pain ? pain control with acetaminophen, tramadol or severe morphine, today has only needed tylenol, however this afternoon complained of pain with PT that was not controlled, she was given tramadol and pain was considerably less. Consult ortho 07/08. Continue working with PT. (2) Hx of falling: Status: Acute Assessment and plan: Monitor for complications, no acute spinal or neurologic deficits. (3) Atrial fibrillation, chronic: Status: Acute Assessment and plan: Stable, anticoagulated Medication: Apixaban 2.5 mg PO BID Plan: Continue anticoagulation; monitor for bleeding or thromboembolic events. (4) Impaired cognition: Status: Chronic Assessment and plan: Customary safety interventions Palliative consult Discharge Planning Discharge Planning: Return to [facility] 07/09 with home health PT Subjective Subjective Patient reports: no new complaints, pain is less, tolerating liquids well, tolerating a regular diet, voiding w/o difficulty and afebrile; denies diarrhea, nausea, vomiting or shortness of breath Interval history since last seen: Awake alert, excited to work with PT and get stronger to return to the [facility]. Exam Narrative Exam Narrative: General: Well-appearing, speaking full sentences, VSS Head: Normocephalic, atraumatic Eyes: EOMI, no conjunctival injection or icterus ENT: Normal inspection, normal voice Neck: Trachea midline, no cervical tenderness Cardiovascular: Well-perfused extremities Respiratory: Non-labored, lungs clear Abdomen: Soft, non-tender, non-distended Musculoskeletal: Tenderness at bilateral proximal hips, upper extremities nontender; no deformity; pulses intact, no edema noted, skin w/d/p Skin: Normal for age, no acute rash Neuro: Alert, GCS 15, no acute deficits Psychiatric: Appropriate mood, grooming, hygiene Objective Last Vital Signs Temp 36.7 C 07/08/25 07:45 Pulse 94 H 07/08/25 07:45 Resp 16 07/08/25 07:45 BP 141/67 H 07/08/25 07:45 Pulse Ox 94 07/08/25 07:45 VTE Prohylaxis Risk Level: Low Risk Contraindications: None Prophylaxis: Patient anticoagulated (apixaban) Time Spent with Patient Time Spent with Patient: 25-34 minutes Time was spent: preparing to see the patient(eg.review tests), referring, communicating with other health medication care manager, indepentently interpreting results, counseling the patient and care coordination
--- NOTE | 2025-07-08 18:24 | PDOC.CMIN ---
Date of service: 07/08/25 Time of Service: 18:24 Care Management Initial Assmt Initial Assessment Reason for Hospitalization: bilateral hip pain, ambulatory dysfunction Functional Status/Living Situation Patient Presentation: Nellie was sitting up in her chair eating lunch when CM met with her. She stated that although her pain is improved today, she is still feeling pain that she feels is limiting her mobility. CM informed the provider and RN about her complaint of pain. She expressed some concern about not having an MRI today, which she was anticipating; CM informed the provider who will address this with her. Nellie stated that she has lived at [facility] for about 2 years, and lives in a private room on the second floor with access to an elevator. She stated that she has two children, six grandchildren and six great grandchildren. Her daughter lives in [place] and is very supportive. PT stated that she needed moderate assist today to get up and out of bed, but did much better this afternoon, after having pain medication prior to working with PT. CM explained that due to her being in observation status, short term rehab would not be covered by [facility] if needed. She stated that she has funds to pay privately, but also felt that she will likely be able to return to [facility], if she continues to feel better. CM will continue to follow. Town of Residence: [facility] Resides with: Other ([facility]) Significant Other/Family: Local Natural Supports: daughterAyleen Employment Status: Retired Instrumental Activities of Daily Living (ADLs): Requires support Medications Medication Management: No Issues/Barriers identified (medications managed by facility staff) Physical Functioning/Mobility Assistive Device: 4WW Advance Directives Advance Directives: Do you have an Advance Directive: N 07/22/23, 08:51 AD On File at [facility]: N 07/22/23, 08:51 Date Asked 07/07/25 07/07/25, 08:47 AD Date Reviewed COLST On File at [facility] COLST Date Scanned Code Status Resuscitation Status DNR/DNI Insurance Coverage/Financial Issues Insurance: VBA Care Team Visit Care Team Role Provider Type Lori Damian NP MD [facility] STAFF PHYSICIAN Paige Davalos Primary Care Provider [facility] PRACTICE REGISTERED NURSE Luis Martinez MD Other Providers [facility] STAFF PHYSICIAN Soco Porter Other Providers OTHER Sg Philip MD Emergency Provider [facility] STAFF PHYSICIAN Bebeto Del Valle MD Admit Provider [facility] STAFF PHYSICIAN Attending Provider Discharge Potential Discharge Needs: PCP F/U Appt Anticipated Barriers to Discharge: None Identified Patient/Family Education Needs: Review discharge instructions, discuss Ask Me Three Transportation: Private vehicle Plan: Anticipate Nellie will return to [facility], and may benefit from new PT to continue to support improved mobility. She will transport via private vehicle, by her daughter vs [facility]. She will follow up with her PCP and discharge plan of care. CM will continue to follow. Social Determinants of Health Screening Social Determinants of health last assessed in clinic: 07/07/25 Will the Patient Participate in the Screening?: Declined to provide Do you worry about having a steady place to live?: choose not to answer Problems where you live: no known problems In the past 12 months, have you had to go without electric, gas, oil or water in your home?: no Has lack of transportation kept you from medical appointments or from doing things needed for daily living?: no Has anyone in your life made you feel unsafe or unsupported?: no How hard is it for you to pay for the very basics like food, housing, medical care, and heating? Would you say it is:: Not hard at all Do you want help finding or keeping work or a job?: I do not need or want help If for any reason you need help with day-to-day activities such as bathing, preparing meals, shopping, managing finances, etc., do you get the help you need?: I don?t need any help How often do you feel lonely or isolated from those around you?: Never Do you speak a language other than Albanian at home?: No Does the patient want assistance with any of the above?: No Comments: from [facility] All Active Problems (Updated 07/07/25 @ 14:41 by Lori Damian NP) Discharge planning issues (Acute) Acute low back pain (Acute) Hx of falling (Acute) Arthritis of left glenohumeral joint (Acute) Impaired cognition (Chronic) Asthma (Chronic) Atrial fibrillation, chronic (Acute) Microscopic colitis (Acute) 06/06/24 per PCPn problem list [facility] Lives in assisted living facility (Acute) Back pain (Acute) Plantar fasciitis (Acute) Physician orders for life-sustaining treatment (POLST) form indicates patient wish for in-fim-zcqsnfnrwue status (Acute) ACP (advance care planning) (Acute) Medical History White blood cell disorder Paroxysmal atrial fibrillation Non-toxic multinodular goiter Nocturia Migraine with aura Microscopic hematuria Insomnia Hypertensive disease Hyperlipidemia Hx of malignant neoplasm of colon Cough variant asthma Constipation Compression fracture of lumbar vertebra Chronic pain Cerebrovascular accident Cataract Osteoporosis Surgical History History of bowel resection Sigmoid resection for stage 3 colon cancer 07/10/1997 Hx of colonoscopy Social History Smoking/Tobacco Use Status: Former Tobacco Use Smoking risk assessment performed?: Yes Alcohol Intake: never Drug use: Never Substance use type: does not use Housing: assisted living facility Additional Social history: [facility]
--- NOTE | 2025-07-08 18:39 | W.ORTHOCONSU ---
Date of service: 07/08/25 Time of Service: 16:20 History of Present Illness Narrative: Nellie is an 84-year-old female who lives at the [facility]. She had a fall on , reportedly leaned on her buttock. She was able to mobilize initially but over the ensuing few days she had increasing pain with mobilization. This pain is described as being in both legs extending across the lower portion of her back and buttock and into the legs sometimes going all the way down although she reports it is mostly about the posterior and posterior lateral aspect hips and into the thighs. She is somewhat vague in her symptoms and sometimes mixes between some that she has had in the past versus what she currently has. She also mentions that pain about the posterior lateral right heel which predated her fall on . She was seen in the emergency department with x-rays of her extremities as well as a CT scan of her pelvis. No fracture was identified. However, she was unable to mobilize safely in the emergency department and therefore was admitted for observation and management. I was consulted by the hospitalist team. She does have osteoporosis and has had a DEXA scan previously and received yearly Reclast infusion. Consults Consult date: 07/07/25 Requesting physician: Lori Damian Consult Reason Bilateral hip/leg pain Assessment and Plan Assessment and plan (1) Greater trochanteric bursitis of both hips: Status: Acute (2) Acute low back pain: Status: Acute Assessment and plan: Nellie is an 84-year-old female who had a fall on with progressive worsening pain. This most likely represents some bone bruising and traumatic injury to the tissues which have become more swollen and inflamed leading to increasing pain limiting her function. I do not see any concerning features on examination nor on multiple sets of x-rays and CT scans that she has. While there may be some microscopic injury which could be identified with MRI is not going to change her plan. There is no indication for surgery at this time. She has a brittle bone but is taking appropriate medications. Therefore, I recommend that we continue with progressive physical therapy and weightbearing as tolerated. Appropriate medication is for treating her pain. There is no other concerning features at this time except that some of this could be coming from her low back. She does have significant compression disease within the lumbar and thoracic spine which is led to a pronounced kyphotic deformity. She also has some notable arthritis within the lower thoracic and lumbar spine which could be causing some weakness and pain although she does not have gross weakness on examination today. Therefore I would continue to mobilize and treat conservatively. If her symptoms persist I do think evaluation of the spine would be the next step. Review of Systems All systems reviewed & are unremarkable except as noted in HPI and below PFSH All Active Problems (Updated 07/09/25 @ 06:33 by Luis Martinez MD) Greater trochanteric bursitis of both hips (Acute) Discharge planning issues (Acute) Acute low back pain (Acute) Hx of falling (Acute) Arthritis of left glenohumeral joint (Acute) Impaired cognition (Chronic) Asthma (Chronic) Atrial fibrillation, chronic (Acute) Microscopic colitis (Acute) 06/06/24 per PCPn problem list [facility] Lives in assisted living facility (Acute) Back pain (Acute) Plantar fasciitis (Acute) Physician orders for life-sustaining treatment (POLST) form indicates patient wish for nl-vev-sbjojzumkss status (Acute) ACP (advance care planning) (Acute) Medical History White blood cell disorder Paroxysmal atrial fibrillation Non-toxic multinodular goiter Nocturia Migraine with aura Microscopic hematuria Insomnia Hypertensive disease Hyperlipidemia Hx of malignant neoplasm of colon Cough variant asthma Constipation Compression fracture of lumbar vertebra Chronic pain Cerebrovascular accident Cataract Osteoporosis Surgical History History of bowel resection Sigmoid resection for stage 3 colon cancer 07/10/1997 Hx of colonoscopy Social History Smoking/Tobacco Use Status: Former Tobacco Use Smoking risk assessment performed?: Yes Alcohol Intake: never Drug use: Never Substance use type: does not use Housing: assisted living facility Additional Social history: [facility] Exam Narrative Exam Narrative: Resting in the hospital bed. No acute distress. Alert and orient x 3. Evaluation of the low back and pelvis shows fairly exquisite pain to palpation about the posterior soft tissues as well as the sacrum, worse on the right side than on the left side. No appreciable defect is palpable. No pain in the lower lumbar spine although reported history of kyphoplasty from compression fractures. Evaluation of both hip shows no pain with hip internal/external rotation. There is more exquisite pain with palpation of the greater trochanter, slightly worse on the right side than the left side. She is able to actively straight leg raise and flex the right hip and left hip without significant weakness nor significant pain. Sensation intact light touch from L3-S1. She has intact knee extension, ankle dorsiflexion, ankle plantarflexion, great toe extension. She does report pain to palpation throughout the lower legs, worse on the right side. Evaluation of the right heel also shows what looks to be a stage I pressure injury about the right lateral malleolus and the right posterior heel laterally, although this appears chronic in nature. Results Last Vital Signs Temp 36.7 C 07/08/25 07:45 Pulse 94 H 07/08/25 07:45 Resp 16 07/08/25 07:45 BP 141/67 H 07/08/25 07:45 Pulse Ox 94 07/08/25 07:45 Labs 07/07/25 09:35 07/07/25 09:35 Imaging Imaging Studies: Multiple x-rays were reviewed. X-rays of the right tib-fib and left tib-fib show some slight demineralization but no sign of fracture. No significant arthritis. X-rays of the left and right femur were also reviewed. These show diffuse vascular calcifications but no sign of fracture. There is some mild calcification seen adjacent to the greater trochanter consistent with potential possible tendinitis of the abductor tendons, slightly worse on the left side x-ray of the pelvis was also reviewed which shows once again no significant findings except for some synovitis but the right SI joint. CT scan of the pelvis was reviewed and does not show any concerning features for fracture. There is some air seen within the right SI joint. There is notable arthritic disease seen in the facet joints of the lower lumbar spine. More specific CT scan of the thoracolumbar spine was performed which shows significant kyphotic deformity with multiple wedge compression fractures along with kyphoplasty at 2 segments. Diffuse calcification seen within the aorta and vascular trees on the CT scan. No acute fractures present. There also appears to be some compression fracture of L2 and L3.
[2025-07-08] MEDS: Melatonin 3 MG TAB 6 MG PO (19:58)
[2025-07-08] MEDS: Simvastatin 40 MG TAB PO (19:58)
[2025-07-08 20:03] VITALS: BP 124/64; PULSE 88; RESP 17; TEMP 36.5; O2SAT 93
[2025-07-09] MEDS: MORPHine 2 MG/ML SYR IVP (00:57)
[2025-07-09 07:31] VITALS: BP 136/81; PULSE 79; RESP 17; TEMP 36.7; O2SAT 95
[2025-07-09] MEDS: Calcium 600mg/Vit D 200U TAB 1 TAB PO (07:57)
[2025-07-09] MEDS: cloNIDine 0.1 MG TAB PO (07:57)
[2025-07-09] MEDS: amLODIPine 10 MG TAB PO (07:57)
[2025-07-09] MEDS: Apixaban 2.5 MG TAB PO (07:57)
[2025-07-09] MEDS: Methocarbamol 500 MG TAB PO ×2 (07:57→13:39)
[2025-07-09] MEDS: Furosemide 20 MG TAB PO (07:58)
[2025-07-09] MEDS: Multivitamin TAB 1 TAB PO (07:58)
[2025-07-09] MEDS: Losartan 50 MG TAB 100 MG PO (07:58)
[2025-07-09] MEDS: Omeprazole 20 MG CAPCR 40 MG PO (07:58)
[2025-07-09] MEDS: Carvedilol 12.5 MG TAB PO (07:58)
[2025-07-09] MEDS: traMADol 50 MG TAB PO ×2 (08:06→13:39)
[2025-07-09] MEDS: Budesonide/Formoterol 80/4.5 6.9 GM 60 PUFF INH IH (08:08)
--- NOTE | 2025-07-09 09:56 | PTTR_ITS ---
PT Notes Visit Reasons: Bilateral Hip Pain; Ambulatory Dysfunction Date: 07/09/2025 PRECAUTIONS: Fall precautions. Standard. Activity as tolerated. SUBJECTIVE: Pt in recliner when approached for therapy this morning, agreed to participating with therapy session. OBJECTIVE: ? PAIN: At rest 2/10 in sacral region, 2/10 in left > right LE, increased to 4/10 with active movement VITALS: Monitored by nursing Therapeutic Activities 65296: Direct one-on-one instruction in dynamic activities to improve functional performance. ?? BED MOBILITY/TRANSFERS? Sit-stand: ?min A? Stand-sit: ??SBA ? Chair-Commode: CGA ? Commode-Chair:? ?CGA ? Provided skilled cues and instruction on performance and technique throughout. Gait Training 88192: Direct one-on-one instruction and skilled instruction in: Employing an assistive device Modified weight-bearing status Movement sequencing Turning and movement with proper form Provided verbal cues for equipment management and technique Provided instruction in gait pattern Patient education regarding pacing and breathing techniques to maximize activity tolerance? GAIT? Assistive Device: ?? FWW? Weight bearing: WBAT Assist: ? CGA? Distance:?? 80' x 2 rest break in between? Deviation: ? antalgic gait, stoop forward posture? ASSESSMENT:?pt requested to use the commode after gait training, pt not having LBM today and only had to do number 1 at [facility]. pt situated in recliner post session for comfort, call early and proper body alignment. PLAN: Continue with balance training, global strengthening and general c onditioning for improved safety, mobility and activity tolerance until pt is ready for DC. TREATMENT CODE/TIME: [id number] 30mins ( 9:20-9:50am)
--- NOTE | 2025-07-09 13:03 | DSE_ITS ---
Date of service: 07/09/25 Time of Service: 13:03 DS: Diagnosis Discharge Diagnosis (1) Greater trochanteric bursitis of both hips: Status: Acute (2) Acute low back pain: Status: Acute Discharge Plan Disposition Patient Disposition: Home W/Home Health Services Home Health Services: New Referral Anticipated Discharge Date/Time: 07/09/25 13:19 Condition: Improving Discharge Details Reason For Visit: Bilateral Hip Pain; Ambulatory Dysfunction Admit Date/Time: 07/07/25 12:07 Admit Provider: Bebeto Del Valle Attending Provider: Bebeto Del Valle Primary Care Provider: Paige Davalos [facility] Course Hospital Course: This is an 84 year old female patient who presented with bilateral hip pain following a fall several days prior to admission. Pain radiates down both legs and limits standing and ambulation. The patient denied mid-back pain, bowel or bladder incontinence, numbness, tingling, fevers, cough, shortness of breath, or chest pain. She reported decreased urine output following placement of an external catheter on Tuesday. There was no additional trauma beyond the reported fall. Physical therapy evaluated the patient. Plain radiographs were obtained and did not demonstrate acute fracture. Pain was not out of proportion, and there was no concern for necrotizing soft tissue infection. MRI of the pelvis was considered in ED to evaluate for possible insufficiency fracture, however not recommended. The patient was not septic; lactate was normal. Pain improved with acetaminophen administered in the ED. She was placed in observation status on the medical floor for further evaluation and management. Patient was evaluated by orthopedics. The patient participated in physical therapy and ambulated successfully with a walker, requiring only minimal assistance, primarily for transfers from bed to standing and from the commode. The patient?s pain was well controlled with acetaminophen. For moderate pain, tramadol was administered with good effect, making the pain tolerable. She may continue the methocarbamol she was taking prior to arrival. Blanchable redness was noted on the right lateral malleolus and right heel. These areas should be protected, offloaded, and assessed frequently. Patient is stable and able to return to [facility] with PT. and OT. Home Meds and New Rx's Prescriptions: New acetaminophen 325 mg Tablet 650 mg PO Q6H PRN PRNQty: 0 0RF tramadol 50 mg tablet 50 mg PO Q8H PRN (Reason: moderate pain (scale score 5-6)) Qty: 20 0RF Continued amlodipine 10 mg tablet 10 mg PO DAILY calcium carbonate-vitamin D3 500 mg-10 mcg (400 unit) tablet 1 tab PO BID carvedilol 12.5 mg tablet 12.5 mg PO BID Rx Instructions: must administer with a meal/food clonidine HCl 0.1 mg tablet 0.1 mg PO BID fluticasone furoate-vilanterol 100-25 mcg/dose blister with device 1 inh inhalation DAILY furosemide 20 mg tablet 20 mg PO DAILY losartan 100 mg tablet 100 mg PO DAILY multivitamin with iron Tablet 1 tab PO DAILY omeprazole 40 mg capsule,delayed release(DR/EC) 40 mg PO DAILY simvastatin 40 mg tablet 40 mg PO QHS trazodone 50 mg tablet 150 mg PO QHS PRN docusate sodium 100 mg capsule 200 mg PO BID polyethylene glycol 3350 17 gram/dose powder 17 g PO DAILY loperamide [Imodium A-D] 2 mg tablet 2 mg PO BID PRN Eliquis 2.5 mg tablet 2.5 mg PO BID Patient Comments: 06/06/24 per PCP med list [facility] melatonin 5 mg capsule 5 mg PO HS methocarbamol 500 mg tablet 500 mg PO TID Qty: 7 0RF Discharge Instructions Instructions: Preventing falls in adults Additional Instructions: Diagnosis / Reason for Stay * Bilateral hip pain after a fall * No fractures seen on X-rays * Pain improved with treatment and physical therapy Activity * Activity as tolerated. * Use walker at all times for ambulation. * Follow physical therapy guidance for transfers, standing, and walking. * Avoid sudden movements and high-risk activities that could lead to another fall. Therapy * Home Health Physical Therapy and Occupational Therapy will continue at [facility]. * Participate fully in therapy sessions to improve strength, balance, and mobility. Pain Management * Continue acetaminophen as needed for pain (do not exceed recommended daily dose of 3 grams). * Tramadol may be used for moderate pain as prescribed. * Continue methocarbamol as you were taking prior to arrival. * Notify your provider if pain worsens or is not controlled with these measures. Fall Precautions * Use call light or ask for assistance when getting up. * Wear supportive, non-slip footwear. * Keep walker within reach. * Ensure adequate lighting and a clutter-free environment. Hydration / Urination * Maintain adequate oral hydration. * Notify staff or your provider if you notice decreased urine output, pain with urination, or inability to void. When to Seek Medical Attention * New or worsening hip, back, or leg pain * Inability to stand or walk * New numbness, tingling, or weakness * Loss of bowel or bladder control * Fever, chills, or signs of infection * Another fall or injury Follow-Up * Follow up with your primary care provider as scheduled. * Orthopedic follow-up as recommended. Disposition * Stable for return to [facility] with Home Health PT and OT services in place. NOTE: Blanchable redness was noted on the right lateral malleolus and right heel. These areas should be protected, offloaded, and assessed frequently. Stand Alone Forms: Portal Information Referrals: Paige Davalos [Primary Care Provider, Medicine] Referral Note: 1 week post hospitalization s/p fall with bilateral hip pain - no fractures. Activity:: Activity as Tolerated Equipment/Supplies:: Walker Diet:: As Tolerated Discharge Orders Discharge Orders: Discharge Order (Routine); Ordered 07/09/25 Ordered By: Lori Damian DS: Summary Time Spent with Patient providing and/or coordinating discharge services: Greater than 30 minutes Status at Discharge Functional status at discharge: uses cane/walker Overall status at discharge: patient is progressing back to baseline Mental Status: mental status grossly normal Speech and Movement: speech and movement normal Mood: congruent mood Affect: normal affect Exam Narrative Exam Narrative: General: Well-appearing, speaking full sentences, VSS Head: Normocephalic, atraumatic Eyes: EOMI, no conjunctival injection or icterus ENT: Normal inspection, normal voice Neck: Trachea midline, no cervical tenderness Cardiovascular: Well-perfused extremities Respiratory: Non-labored, lungs clear Abdomen: Soft, non-tender, non-distended Musculoskeletal: Tenderness at bilateral proximal hips, upper extremities nontender; no deformity; pulses intact, no edema noted, skin w/d/p - some rednes s noted on right heel and right lateral malleolus. Skin: Normal for age, no acute rash Neuro: Alert, GCS 15, no acute deficits Psychiatric: Appropriate mood, grooming, hygiene Psych Mental Status: mental status grossly normal Speech and Movement: speech and movement normal Mood: congruent mood Affect: normal affect DS: Data Vitals/I&O Vitals and I&O: Vital Signs Temperature 36.7 C 07/09/25 07:31 Temperature Source Temporal Artery Scan 07/09/25 07:31 Pulse 79 07/09/25 07:31 Pulse Rhythm Irregular 07/07/25 13:39 Respiratory Rate 17 07/09/25 07:31 Respiratory Effort Normal, Non-Labored 07/07/25 13:39 Respiratory Depth Normal 07/07/25 13:39 Respiratory Pattern Normal 07/07/25 13:39 Blood Pressure 136/81 07/09/25 07:31 Blood Pressure Mean 99 07/09/25 07:31 Blood Pressure Position Supine 07/07/25 08:56 Pulse Oximetry 95 07/09/25 07:31 Oxygen Delivery Method Room Air 07/09/25 07:31 Oxygen Flow Rate 0 07/09/25 07:31 Pain Level 8 07/09/25 00:57 Intake & Output 07/08/25 07/09/25 07/09/25 23:59 11:59 23:59 Intake Total 670 / 910 350 / 350 Output Total 450 / 975 250 / 250 Balance 220 / -65 350 / 100 -250 / 100 Intake: IV Oral 660 / 900 350 / 350 Output: Urine 450 / 975 250 / 250 Other: Urine Color Yellow Yellow Urine Appearance Clear Clear Urine Odor Normal Normal Comment moderate amount of urine. Stool Size Moderate Stool Characteristics Soft Data Completed and Pending Pending Labs at Discharge: 07/07/25 09:35 WBC 10.07 RBC 4.41 Hgb 14.0 Hct 40.2 MCV 91 MCH 31.7 MCHC 34.8 RDW 11.9 Plt Count 183 MPV 9.2 Immature Gran % 0.5 Neutrophils % 78.4 Lymphocytes % 7.7 Monocytes % 9.1 Eosinophils % 3.7 Basophils % 0.6 Nucleated RBC % 0.0 Absolute Neutrophils 7.89 H Absolute Lymphocytes 0.78 L Absolute Monocytes 0.92 H Absolute Eosinophils 0.37 Absolute Basophils 0.06 Sodium 140 Potassium 3.6 Chloride 104 Carbon Dioxide 27.4 Anion Gap 8.6 BUN 17 Creatinine 0.67 Est GFR (CKD-EPI 2020) 83.90 Glucose 124 H Calcium 8.8 Creatine Kinase 45 PFSH All Active Problems (Updated 07/09/25 @ 06:33 by Luis Martinez MD) Greater trochanteric bursitis of both hips (Acute) Discharge planning issues (Acute) Acute low back pain (Acute) Hx of falling (Acute) Arthritis of left glenohumeral joint (Acute) Impaired cognition (Chronic) Asthma (Chronic) Atrial fibrillation, chronic (Acute) Microscopic colitis (Acute) 06/06/24 per PCPn problem list [facility] Lives in assisted living facility (Acute) Back pain (Acute) Plantar fasciitis (Acute) Physician orders for life-sustaining treatment (POLST) form indicates patient wish for [id number] status (Acute) ACP (advance care planning) (Acute) Medical History White blood cell disorder Paroxysmal atrial fibrillation Non-toxic multinodular goiter Nocturia Migraine with aura Microscopic hematuria Insomnia Hypertensive disease Hyperlipidemia Hx of malignant neoplasm of colon Cough variant asthma Constipation Compression fracture of lumbar vertebra Chronic pain Cerebrovascular accident Cataract Osteoporosis Surgical History History of bowel resection Sigmoid resection for stage 3 colon cancer 07/10/1997 Hx of colonoscopy Social History Smoking/Tobacco Use Status: Former Tobacco Use Smoking risk assessment performed?: Yes Alcohol Intake: never Drug use: Never Substance use type: does not use Housing: assisted living facility Additional Social history: [facility] Time Spent with Patient Time Spent with Patient: 45-69 minutes Time was spent: preparing to see the patient(eg.review tests), ordering medications,tests, procedures, referring, communicating with other health wound care rn, indepentently interpreting results, counseling the patient and care coordination
--- NOTE | 2025-07-09 13:04 | PDOC.CMDIS ---
Date of service: 07/09/25 Time of Service: 13:26 LACE Index Scoring Tool Questions: Length of Stay (in days): 2 Was the patient admitted via the E.D.?: Yes E.D. Visits: 1 Answers: Total Score: 6 Risk of Readmission: Low Risk Care Management Discharge Plan Reason for Hospitalization: bilateral hip pain, ambulatory dysfunction Discharge Plan: Nellie returned to the [facility] today with new orders for HH PT, OT. CM communicated with MAREN Forman, and informed her that Nellie still needs minimal assistance in getting out of her chair, but PT has cleared her to return to assisted living level of care. Her daughter drove her home via private vehicle. She will follow up with her PCP and discharge plan of care. Patient/Family Education Needs: Review discharge instructions and limitations, discussion of self care needs including ask me three. Services Needed at Discharge: Home Health Care Services (new HH PT, OT)
--- NOTE | 2025-07-09 13:50 | PDOC.HHF2F ---
Date of service: 07/09/25 Time of Service: 13:50 Home Health Referral Home Health Orders Clinical synopsis of why skilled professionals are needed: This is an 84 year old female patient who presented with bilateral hip pain following a fall several days prior to admission. Pain radiates down both legs and limits standing and ambulation. The patient denied mid-back pain, bowel or bladder incontinence, numbness, tingling, fevers, cough, shortness of breath, or chest pain. She reported decreased urine output following placement of an external catheter on Tuesday. There was no additional trauma beyond the reported fall. Physical therapy evaluated the patient. Plain radiographs were obtained and did not demonstrate acute fracture. Pain was not out of proportion, and there was no concern for necrotizing soft tissue infection. MRI of the pelvis was considered in ED to evaluate for possible insufficiency fracture, however not recommended. The patient was not septic; lactate was normal. Pain improved with acetaminophen administered in the ED. She was placed in observation status on the medical floor for further evaluation and management. Patient was evaluated by orthopedics. The patient participated in physical therapy and ambulated successfully with a walker, requiring only minimal assistance, primarily for transfers from bed to standing and from the commode. The patient?s pain was well controlled with acetaminophen. For moderate pain, tramadol was administered with good effect, making the pain tolerable. She may continue the methocarbamol she was taking prior to arrival. Blanchable redness was noted on the right lateral malleolus and right heel. These areas should be protected, offloaded, and assessed frequently. Patient is stable and able to return to [facility] with HH PT. and OT. Medical diagnosis necessitation home health referral: Falls; bilateral hip pain; frailty Physical Therapist: Check all that apply Increase strength & endurance for safe mobility at home: Ordered To design/establish home maintenance program: Ordered Fall reduction therapy program for patient with history of frequent falls: Ordered Home safety evaluation and teaching/gait training including stair management (if applicable): Ordered Occupational Therapist: Evaluate and treat for patient unable to perform ADL/IADL/self-care: Ordered Upper extremity strengthening, range and motion: Ordered Home Bound Status Requires the aid of supportive device (check all that apply): Walker Assistance of another person (Describe assistance and medical necessity): walker and stand by Describe why leaving home would require a considerable and taxing effort: Requires frequent rest periods Encounter Date and Reason: I certify that a FTF encounter for this patient was performed on July 09, 2025 and that such encounter was related to the primary reason the patient requires home health services. The encounter was conducted in the following manner: By me as the certifying physician, INSTRUCTOR PSYCHIATRIC AIDE, PA or By an inpatient physician, INSTRUCTOR PSYCHIATRIC AIDE or PA during an inpatient stay who communicated findings to me, Certification And Authentication I certify that I composed the above information based on my clinical judgment relating to this patient's medical condition and, if applicable, clinical findings communicated to me by the NPP or inpatient physician who performed the FTF encounter. Name of Provider that will be monitoring home health services: Paige Davalos
== END 2025-07-09 14:13 | disposition home health service (06) ==
LOC: ER 12:18 → MS 18:27
PROVIDERS: Admitting Provider Family Medicine; Emergency Provider Emergency Medicine; PCP Nurse Practitioner Family; Responsible Provider Nurse Practitioner Family; Visit Provider Family Medicine
DX: M70.61 Trochanteric bursitis, right hip (principal); M70.62 Trochanteric bursitis, left hip; M54.50 Low back pain, unspecified; Z91.81 History of falling; I48.20 Chronic atrial fibrillation, unspecified; R41.89 Other symptoms and signs involving cognitive functions and awareness; J45.909 Unspecified asthma, uncomplicated; K52.839 Microscopic colitis, unspecified; Z66 Do not resuscitate; M80.88XA Other osteoporosis with current pathological fracture, vertebra(e), initial encounter for fracture; Z86.73 Personal history of transient ischemic attack (TIA), and cerebral infarction without residual deficits; G47.00 Insomnia, unspecified; E04.2 Nontoxic multinodular goiter; E78.5 Hyperlipidemia, unspecified; G43.109 Migraine with aura, not intractable, without status migrainosus; G89.29 Other chronic pain; Z85.038 Personal history of other malignant neoplasm of large intestine; Z79.899 Other long term (current) drug therapy; L89.611 Pressure ulcer of right heel, stage 1
CPT/HCPCS: 00123; 36415; 80048; 82550; 94640; 97116; 97162; 97530; 99222; 99285; 73590; 85025; 94664; 99232; 99239; G0378; J2270; J3490